=== PATIENT | female | born 1980 | race Caucasian/White ===

== ENCOUNTER → 2017-05-13 | Outpatient (CLI) | payer BC, MEDICAID ==
--- NOTE | 2017-05-13 12:27 | RAD ---
Ankle-brachial indices, 05/13/2017: History: Intermittent claudication and calf pain Resting NISHANT readings were obtained. The right NISHANT is 1.01, while the left NISHANT is 1.08. IMPRESSION: Normal resting NISHANT measurements
== END | disposition home or self-care (01) ==
LOC: US 10:47
PROVIDERS: ATTEND Family Medicine
DX: M79.661 Pain in right lower leg (principal)
CPT/HCPCS: 93922